=== PATIENT | male | born 1995 | race Caucasian/White ===

== ENCOUNTER 2018-12-09 09:32 | Emergency (ER) | payer OTHER, SELFPAY ==
[2018-12-09 09:36] VITALS: BP 139/89; PULSE 59; RESP 14; TEMP 36.8; O2SAT 97
--- NOTE | 2018-12-09 09:52 | ED.GENADUL_ITS ---
Discharge Plan Disposition Patient Disposition: HOME Condition: Good Discharge Details Chief Complaint: EyeProblem Clinical Impression: Abrasion, corneal Primary Care Provider: Unknown,Unknown ED Provider: Bruno Keller Home Meds and New Rx's Prescriptions: New levofloxacin 0.5 % drops See Rx Instructions .ROUTE .COMPLEX Qty: 5 RF: 0 acetaminophen [Mapap Extra Strength] 500 MG tablet 1,000 mg PO Q6H 5 Days Qty: 60 RF: 0 ibuprofen [Motrin IB] 200 MG tablet 600 mg PO Q6H 5 Days Qty: 60 RF: 0 Discharge Instructions Instructions: Corneal Abrasion (ED) Additional Instructions: You still have a notable corneal abrasion on your left eye. Please stop taking the erythromycin ointment and start using the levofloxacin ointment as directed. Please follow-up with the eye doctor soon as possible. You will be contacted for an appointment. Please take maximum dose Tylenol and Motrin as prescribed for control the pain. If you notice any worsening of your symptoms, or any new symptoms such as worsening of your vision, swelling around your eye, vomiting, diarrhea, fever, chills, shortness of breath, chest pain, numbness, weakness, or fainting , please return immediately to the emergency department for reevaluation. Please follow up with your primary care provider as soon as possi ble for reassessment and reevaluation. As always, it was a pleasure participating in your medical care today. [facility] 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 He was working in the [employer] at the senior living, when he felt that a precaution caught him in the left eye. He was able to remove the thorn per historical account, since then he has had notable pain and irritation, he has been on erythromycin ointment for the last 2 days. Exam demonstrates mild cell and flare suggestive of mild iritis, no history of autoimmune conditions. He does have a nor notable corneal abrasion on the anterior aspect of his eye, no evidence of foreign body or ulceration, no dendritic lesion. Negative Cristian sign. Eversion of the upper and lower lids show no evidence of retained foreign body. Patient's has no pain with movement of the eye, and signs and symptoms inconsistent with septal cellulitis. No indication for further imaging. The remainder the exam is otherwise benign. We will increase the coverage and give Levaquin drops for treatment, recommending holding off on erythromycin. Will recommend maximum strength Tylenol and Motrin for mild iritis. Recommend close follow-up with the front office manager doctor should be. We will place a referral. Discussed red flags which to return as well as importance of follow-up. I have extensively reviewed the treatment plan and discharge instructions with the patient. I have addressed all patient concerns at this time. The patient was made aware of what symptoms to monitor for that would warrant a return to the emergency department. Discussed the plan with the patient, they demonstrate verbal understanding and agreement with our assessment and plan at this time. HPI General Date/Time Provider Initiated Documentation: 12/09/18 09:37 . HPI Narrative: This is a 23-year-old male with no significant past medical history w hose tetanus is not up-to-date who presents today for left eye pain. 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 He does not wear contact lenses. Since then he has noted redness and irritation on the eye. He thought that there was a thorn on his eye at that time, and he pulled it off himself. He has been taking erythromycin ointment ever since then as prescribed by the senior living, however this is not improved his symptoms. He continues to feel that there is something stuck in his eye. Aside for mild blurry vision he denies any other significant vision alteration. He denies any other complaints. He denies any headache, swelling around the eye, dark curtain of his vision, numbness tingling weakness. No fevers or chills. Patient denies any history of penile discharge, STDs, previous gonorrhea. Related Data Home Medications Medication Instructions Recorded Confirmed acetaminophen [Mapap Extra 1,000 mg PO Q6H 5 Days #60 tab 12/09/18 Strength] ibuprofen [Motrin Ib] 600 mg PO Q6H 5 Days #60 tab 12/09/18 levofloxacin See Rx Instructions .ROUTE 12/09/18 .COMPLEX #5 ml Previous Rx's Medication Instructions Recorded acetaminophen [Mapap Extra 1,000 mg PO Q6H 5 Days #60 tab 12/09/18 Strength] ibuprofen [Motrin Ib] 600 mg PO Q6H 5 Days #60 tab 12/09/18 levofloxacin See Rx Instructions .ROUTE 12/09/18 .COMPLEX #5 ml Allergies Allergy/AdvReac Type Severity Reaction Status Date / Time No Known Allergies Allergy Unverified 12/09/18 09:43 General Stated Complaint: EyeProblem AVELINO: 4 Review of Systems Review of Systems All systems reviewed & are unremarkable except as noted in HPI and below PFSH Social History Smoking/Tobacco Use Status: Current every day Tobacco Type: cigarettes Smoking cigarettes per day: 6 Alcohol Intake: never Drug use: Current Sobriety Substance use type: marijuana 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 Left eye: EOMI, PERRL, Peripheral vision intact. No nystagmus. Fundoscopic exam shows normal optic discs and normal vasculature. No external signs of preseptal cellulitis, no redness around the eye, no proptosis. No hyphema, no signs of severe trauma around the eye, no periorbital emphysema. Fluorescein exam is positive for central corneal abrasion, no evidence of dendritic lesion or ulceration, negative Cristian sign. Minimal cell and flare, suggestive of traumatic iritis. Eversion of the upper and lower lids demonstrate no evidence of retained foreign body. 3.ENT: Atraumatic external nose and ears. Moist MM. Neck: Symmetric, trachea midline, No thyromegaly. 4.CVS: +S1/S2, No murmurs or gallops. Peripheral pulses 2+ and equal in all extremities. Brisk capillary refill in all extremities. 5.RESP: Unlabored respiratory effort. Clear to auscultation bilaterally. No wheezes rales or rhonchi 6.GI: Soft, Nontender/Nondistended, No hepatosplenomegaly. No guarding or rebound. 7.MSK: Normocephalic/Atraumatic, Extremities w/o deformity or ttp No cyanosis or clubbing, Normal movement of all extremities 8.Skin: Warm, Dry. No rashes or lesions. 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 Sensation grossly intact, no focal neurologic deficits. 10.Psych: (AAO) x3. Appropriate mood and affect Course Vital Signs Temperature 36.8 C 12/09/18 09:36 Pulse 59 L 12/09/18 09:36 Respiratory Rate 14 12/09/18 09:36 Blood Pressure 139/89 12/09/18 09:36 Pulse Oximetry 97 12/09/18 09:36 Temperature 36.8 C 12/09/18 09:36 Temperature Source Skin 12/09/18 09:36 Pulse 59 L 12/09/18 09:36 Respiratory Rate 14 12/09/18 09:36 Blood Pressure 139/89 12/09/18 09:36 Pulse Oximetry 97 12/09/18 09:36 Oxygen Delivery Method Room Air 12/09/18 09:36 Oxygen Flow Rate 0 12/09/18 09:36 Pain Level 8 12/09/18 09:36
[2018-12-09] MEDS: Fluorescein STRIPS 100/BOX 1 MG (09:53)
[2018-12-09] MEDS: Tetracaine 0.5% 4 ML BTL (09:53)
== END 2018-12-09 10:06 | disposition home or self-care (01) ==
PROVIDERS: Emergency Provider Student in an Organized Health Care Education/Training Program
DX: S05.02XA Injury of conjunctiva and corneal abrasion without foreign body, left eye, initial encounter (principal); T15.02XA Foreign body in cornea, left eye, initial encounter
CPT/HCPCS: 90471; 99284

== ENCOUNTER 2021-09-22 10:35 | Outpatient (CLI) | payer OTHER, SELFPAY ==
--- NOTE | 2021-09-22 10:15 | DI.RAD_ITS ---
Exam(s) XR ANKLE RT COMPLETE EXAM: XR ANKLE RT COMPLETE CLINICAL HISTORY: R ankle pain. TECHNIQUE: 2D digital imaging was performed. Three views. COMPARISON: MR MR ANKLE RT WO CONTRAST from 02/14/2020 FINDINGS: BONES: No acute fracture is present. No bony destructive lesion is seen. JOINTS: The ankle mortise is normally aligned. Ankle joint space is well maintained. Mild spurring d istal tibia. Small spur dorsal aspect of talus. SOFT TISSUE: Bony densities noted beneath the medial malleolus have a chronic appearance. IMPRESSION: Chronic appearing bony density beneath the medial malleolus. Mild degenerative changes. DATA REPOSITORY: RADIATION DOSE DELIVERED:
== END 2021-09-22 10:36 | disposition home or self-care (01) ==
LOC: DIORS 10:36
PROVIDERS: Visit Provider Physician Assistant
DX: M25.571 Pain in right ankle and joints of right foot (principal); M77.51 Other enthesopathy of right foot and ankle
CPT/HCPCS: 73610

== ENCOUNTER 2022-04-08 09:37 | Day surgery (SDC) | payer OTHER, SELFPAY ==
[2022-04-08] VITALS (12 sets, daily range): BP systolic 104–152; BP diastolic 48–101; PULSE 53–78; RESP 12–19; TEMP 36–36.5; O2SAT 95–100; BMI 32.3
--- NOTE | 2022-04-08 10:26 | W.ANESPRE ---
General Info Date of Service Date Performed: 04/08/22 Height: 5 ft 5 in Weight: 88 kg Body Mass Index (BMI): 32.3 Surgical Procedure: Operation Date: 04/08/22 11:40 Proposed Procedure Side Surgeon p Ankle Removal of Loose Fragments Right Gaurav Olmos MD Meds Allergies and Home Medications Allergies Allergy/AdvReac Type Severity Reaction Status Date / Time sertraline [From Zoloft] AdvReac Intermediate Bradycardia Unverified 02/10/22 13:50 topiramate [From Topamax] AdvReac Intermediate Decreases Unverified 02/10/22 13:50 BP Home Medication Medication Instructions Recorded acetaminophen 500 mg tablet 1,000 mg PO BID PRN 09/22/21 (Tylenol Extra Strength) buprenorphine HCl 8 mg sublingual 8 mg sublingual DAILY 09/22/21 tablet clonidine HCl 0.2 mg tablet 0.5 mg PO BID 09/22/21 sennosides 8.6 mg tablet (Senna 8.6 mg PO BID 09/22/21 Lax) hydroxyzine HCl 25 mg tablet 25 mg PO BID 04/06/22 docusate sodium 50 mg capsule mg PO 04/08/22 Current Visit Medications: Current Medications Generic Name Dose Route Start Last Admin Trade Name Freq PRN Reason Stop Dose Admin Ringer's Solution 1,000 mls @ 80 mls/hr 04/08/22 06:00 IV 05/07/22 23:59 INFUSION XIANG Cefazolin Sodium/Dextrose 2 gm in 50 mls @ 100 mls/hr 04/08/22 06:00 Ancef Duplex IVPB 04/08/22 16:00 PREOP XIANG IV Miscellaneous Supplies 1 each 04/08/22 06:00 Iv Access IV 05/07/22 23:59 DIRECTED XIANG Sodium Chloride 0 ml 04/08/22 06:00 Normal Saline Flush 10 Ml Syr IV 05/07/22 23:59 PRN PRN Sodium Chloride 0 ml 04/08/22 06:00 Normal Saline 10 Ml Vial IJ 05/07/22 23:59 DIRECTED PRN Sterile Water 0 ml 04/08/22 06:00 Water,Injection,Sterile 10 Ml Vial IJ 05/07/22 23:59 DIRECTED PRN PFSH Active Problems Active Problems: Problem Status Onset Code 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 [id number] Fracture of ankle, medial malleolus, right, closed S82.51XA Tobacco Smoking/Tobacco Use Status: Former Tobacco Use Alcohol Alcohol Intake: never Substance Use Substance use: Current Sobriety Substance use type: marijuana Vital Signs and Lab Results Vital Signs Most Recent Vital Signs in EMR: Most Recent Vital Signs Temp Pulse Resp BP Pulse Ox 36.0 C L 65 16 148/87 H 98 04/08/22 09:55 04/08/22 09:55 04/08/22 09:55 04/08/22 09:55 04/08/22 09:55 Lab Results Blood Type / Crossmatch: No Data to Display Complete Blood Count: No Data to Display Complete Metabolic Panel: No Data to Display Liver Function Panel: No Data to Display Coagulation Panel: No Data to Display Cardiac Panel: No Data to Display Arterial Blood Gas: No Data to Display Venous Blood Gas: No Data to Display Pancreas Panel: No Data to Display Thyroid Panel: No Data to Display Infectious Disease: No Data to Display Blood Cultures: No Data to Display Toxicology Panel: No Data to Display Anesthesia Assessment and Plan Anesthesia History Personal History: No History of General Anesthesia Family History: No Family History of Anesthesia Complications Exercise Tolerance Exercise Tolerance: Metabolic Equivalents>4 Pertinent Negatives Pertinent Negatives: No Symptoms of GERD and No Major Cardiovascular Symptoms or Complaints Cardiac & Pulmonary Exam Cardiac Exam: Normal S1/S2 Heart Sounds Pulmonary Exam: Clear Bilateral Breath Sounds Implantable Cardiac Device Does patient have a Pacemaker or an ICD?: No Airway Exam Known Difficult Airway: No Mallampati Class: 1 Mouth Opening: Normal (> 3cm) Thyromental Distance: Greater than 3 cm Neck Range of Motion: Full ROM Neck Circumference: Normal Teeth Condition: Normal Dentition Airway Comments: #21 chipped, #11 silver filling ASA Classification ASA Score: ASA 2 Emergency Case?: No NPO Status NPO Status: NPO Clears >2 hours, Solids >8 hours Anesthesia Plan Resuscitation Status: Full Code Anesthesia Technique: General Anesthesia Airway Planned: LMA Monitors Used: Standard Monitors
[2022-04-08] MEDS: Lactated Ringers 1,000 ML 80 ML IV (10:35)
--- NOTE | 2022-04-08 10:38 | W.PREOPHP ---
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 These are resting against the posterior tibial tendon and causing pain. Given the persistence of symptoms, I offered excision of these loose bodies. I reviewed the options with him. He agrees to proceed. I did discuss technical details. I discussed the risk, to include bleeding, infection, pain, stiffness, damage nerves and vessels, damage to muscle and tendons, continued pain, worsening arthritis, need for repeat procedures. Despite these risk, he elects to proceed. History of Present Illness History of Present Illness Chief Complaint: Right Ankle Pain Narrative: 26-year-old who suffered an injury to his right ankle some years ago. He has multiple ossific densities about the medial ankle which are abutting the posterior tibial nerve and causing pain. We discussed treatment options and given that the pain is mostly over that medial ankle, I offered to remove these pieces. Please see the previous office note for complete detailed history. He has had no other change to his health. No chest pain or shortness of breath. No fevers and no chills. No sick contacts. He is still a resident of the [facility]. 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 Meds Allergies and Home Medications Allergies Allergy/AdvReac Type Severity Reaction Status Date / Time sertraline [From Zoloft] AdvReac Intermediate Bradycardia Unverified 02/10/22 13:50 topiramate [From Topamax] AdvReac Intermediate Decreases Unverified 02/10/22 13:50 BP Home Medications Medication Instructions Recorded Confirmed Type acetaminophen 500 mg tablet 1,000 mg PO BID PRN 09/22/21 04/08/22 History (Tylenol Extra Strength) buprenorphine HCl 8 mg sublingual 8 mg sublingual DAILY 09/22/21 04/08/22 History tablet clonidine HCl 0.2 mg tablet 0.5 mg PO BID 09/22/21 04/08/22 History sennosides 8.6 mg tablet (Senna 8.6 mg PO BID 09/22/21 04/08/22 History Lax) hydroxyzine HCl 25 mg tablet 25 mg PO BID 04/06/22 04/08/22 History docusate sodium 50 mg capsule mg PO 04/08/22 History Exam Resp Effort & Inspection: normal respiratory effort and able to speak in complete sentences Auscultation: clear to auscultation bilaterally Cardio Rate: regular rate Rhythm: regular rhythm Extrem Other: Continued pain over the medial ankle. Sensation intact light touch over the deep and superficial peroneal nerve and tibial nerve. No overlying skin changes. Results Last Vital Signs Temp 36.0 C L 04/08/22 09:55 Pulse 65 04/08/22 09:55 Resp 16 04/08/22 09:55 BP 148/87 H 04/08/22 09:55 Pulse Ox 98 04/08/22 09:55
[2022-04-08] MEDS: ceFAZolin 2 GM/50 ML BAG IVPB (10:54)
--- NOTE | 2022-04-08 11:01 | PDOC.DSDIS_ITS ---
Date of service: 04/08/22 Time of Service: 11:12 Discharge Plan Disposition Patient Disposition: HOME Condition: Good Discharge Details Reason For Visit: Ossifications along nonunion fracture right ankle Attending Provider: Gaurav Olmos Primary Care Provider: Jose Chavarria Home Meds and New Rx's Prescriptions: New hydrocodone-acetaminophen 5-325 mg tablet 1 tab PO Q6H PRN (Reason: severe pain) Qty: 8 0RF Rx Instructions: Take one tablet up to every 6 hours as needed for severe postoperative pain Continued buprenorphine HCl 8 mg tablet, sublingual 8 mg sublingual DAILY sennosides [Senna Lax] 8.6 mg tablet 8.6 mg PO BID clonidine HCl 0.2 mg tablet 0.5 mg PO BID hydroxyzine HCl 25 mg Tablet 25 mg PO BID docusate sodium 50 mg Capsule PO Changed acetaminophen [Tylenol Extra Strength] 500 mg tablet 500 mg PO Q6H PRNQty: 90 0RF No Action ibuprofen 800 mg tablet 800 mg PO Q8H PRN (Reason: pain) Qty: 90 0RF Discharge Instructions Additional Instructions: Ankle Ossification Removal Discharge Instructions Activity: You are WEIGHT BEARING as tolerated. Patient will be in the [facility] for 72 hours for strict elevation. You should keep the leg elevated as much as possible. You may wiggle your toes and move your hip and knee. Dressings: You should keep your fracture walking boot on for all mobilization. You may take breaks from the boot at times but it should be on when ambulating. Keep dressing on until follow-up - you may remove in 1 week if desired. Do NOT get wet or dirty. If you have issues with your dressing, please call the office at [phone] or the hospital after hours. Medications: - You should take Tylenol (500mg every 6 hours) and Ibuprofen (800mg every 8 hours) around the clock for baseline pain. - You have been prescribed a stronger narcotic for breakthrough pain. 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
[2022-04-08] MEDS: Bupivacaine 0.5% Pres-Free W/EPI 30 ML VIAL (11:25)
--- NOTE | 2022-04-08 11:36 | DI.RAD_ITS ---
Exam(s) XR ANKLE RT 2V EXAM: XR ANKLE RT 2V CLINICAL HISTORY: RIGHT ANKLE LOOSE BODY TECHNIQUE: 2D and realtime digital imaging was performed. CONTRAST MATERIAL: Refer to procedure report. COMPARISON: No exams were available for comparison FINDINGS: Fluoroscopy was provided for Dr. Olmos during the performance of a loose body evaluation. Please refer to the procedure report for complete details. Ka,r=0.1 mGy IMPRESSION: RADIATION DOSE DELIVERED:
--- NOTE | 2022-04-08 13:14 | W.ANESPOSTOP ---
Postoperative Evaluation Date, Time and Location Date Performed: 04/08/22 Time Performed: 13:14 Patient Location: PACU Vital Signs Most Recent Imported Vital Signs: Most Recent Vital Signs Temp Pulse Resp BP Pulse Ox 36.5 C 69 16 126/48 L 99 04/08/22 12:55 04/08/22 12:55 04/08/22 12:55 04/08/22 12:55 04/08/22 12:55 Pain Score Most Recent Pain Score: Most Recent Pain Score Pain Level 5 04/08/22 09:55 Assessment Mental Status: Awake (Alert & Oriented to Patient Baseline) Airway and Respiratory Function: Patent airway with normal (patient baseline) respiratory exam Cardiovascular Function: Hemodynamically Stable Hydration Status: Adequately Hydrated Nausea & Vomiting: No Nausea or Vomiting Pain: Pain is tolerable per patient Peripheral Nerve Block: Patient did not receive a nerve block
[2022-04-08] MEDS: fentaNYL 100 MCG/2 ML VIAL IVP (13:15)
[2022-04-08] MEDS: HYDROcodone 5/Acetaminophen 325 TAB PO (14:00)
--- NOTE | 2022-04-08 20:06 | ROE_ITS ---
Date of service: 04/08/22 Time of Service: 12:00 Operative Note Operative Note DATE OF PROCEDURE: 04/08/22 PRE-OP DIAGNOSIS: Nonunited bone fragments - right ankle POST-OP DIAGNOSIS: same PROCEDURE: Removal of nonunited bony fragments, medial ankle SURGEON: Gaurav Olmos ANESTHESIA TYPE: General LMA/ETT Refer to Anesthesia Record ESTIMATED BLOOD LOSS: 50 PATHOLOGY: none sent TOURNIQUET TIME: 0 COMPLICATIONS: None Patient was transported to: PACU Patient's condition: stable Indications: Prasad is a 26 year old male suffered a previous injury of his ankle. This resulted in multiple fragments about the medial ankle which were causing impingment and pain. Give the persistence of the symptoms, I offered debridement of the medial ankle loose bodies. I discussed the technical details of the surgery. I reviewed the risks such as bleeding, infection, pain, stiffness, damage to nerves and vessels, blood clot. Despite these risks, he agreed to proceed. Findings: There were two bony fragments removed. The largest was distal of the posterior medial malleolus adjacent to the medial talus and directly impinging on the FHL tendon. A second bony fragment was removed from the anterior aspect of the medial malleolus, adjacent to the posterior tibial tendon. Procedure Description: Prasad was greeted in the preoperative area. Consent was previously reviewed and signed. Once in the operating room, anesthesia was administered. The patient was transferred to the fracture table in the supine position. He was positioned in the supine position with the operative side placed onto a bone foam ramp. All bony prominences were well padded. Arms were placed out to the side, padded, and secured. Prophylactic antibiotics, Cefazolin 2 grams, was given for prophylactic antibiotics. A timeout was performed for safe surgery. The right leg was prepped with Chloraprep. The leg was draped with a stockinette and extremity drape. The proposed surgical site was marked over the medial ankle. Surgical area was anesthetized with 0.5% bupivacaine with epinephrine. The skin and soft tissue was incised sharply curvilinearly along the course of the medial tendons. Angel scissors were used to dissect the soft tissues over the medial retinaculum. The retinaculum was then incised just off the medial malleolus. The posterior tibial tendon was inspected and showed no significant signs of tearing or fraying. The tendon was retracted for visualization of the floor. The bony fragments were palpated. Starting with the larger, posterior 1 adjacent to the medial talus, the floor of the sheath was incised. The bony fragment was then identified and soft tissue dissection was carried around the bony fragment. I utilized a [place] to help free up attachments and eventually was able to remove the piece and hole. Once this was completed I then turned my attention to the more anterior bony fragment. The posterior tibial tendon was once again retracted out of the way and the fragment off of the anterior aspect milliliters was identified. Once again soft tissue attachments were cleared and the piece was removed in whole. The wound was inspected. There is no other bony projections identified. Tissues were in jected with 0.5% bupivacaine with epinephrine. The wound was thoroughly irrigated. The medial retinaculum was then reapproximated with #0 Vicryl. The deep tissues were closed with 2-0 Vicryl and skin was closed with a running 4-0 subcuticular Monocryl reinforced with skin glue and then dressed with a Mepilex silver dressing. He was placed in a fracture walker boot. At the end of the case, all counts were correct. Prasad tolerated the procedure well without known complication and was taken to the PACU for recovery.
== END 2022-04-08 14:33 | disposition home or self-care (01) ==
PROVIDERS: PCP Physical Therapist; Visit Provider Student in an Organized Health Care Education/Training Program
PROC: (CPT 27620; principal; 2022-04-08 11:30)
DX: S82.51XK Displaced fracture of medial malleolus of right tibia, subsequent encounter for closed fracture with nonunion (principal); X58.XXXD Exposure to other specified factors, subsequent encounter
CPT/HCPCS: 27620; 73600; J0131; J0690; J1100; J1885; J2250; J2405; J3010